=== PATIENT | male | born 1960 | race Two or more races ===

== ENCOUNTER 2021-12-02 23:19 | Inpatient (IN) | payer MEDICARE ==
[~2021-12-02] VITALS: Ht 170.2 cm; Wt 89.5 kg
[2021-12-03] VITALS: BP 104/73
[2021-12-03] MEDS ORDERED: GABA-532 PO (00:10)
[2021-12-03] MEDS ORDERED: RIVA20TA PO (00:10)
[2021-12-03] MEDS ORDERED: ACET-73 PO (00:10)
[2021-12-03] MEDS ORDERED: AMLO10TA59 PO (00:10)
[2021-12-03] MEDS ORDERED: DIGO125T5 PO (00:10)
[2021-12-03] MEDS ORDERED: METO-356 PO (00:10)
[2021-12-03] MEDS ORDERED: LISI2.5T14 PO (00:10)
[2021-12-03] MEDS ORDERED: ATOR40TA PO (00:10)
[2021-12-03] MEDS ORDERED: BUME2TAB7 PO (00:10)
[2021-12-03] MEDS ORDERED: CETI-90 PO (00:10)
[2021-12-03] MEDS ORDERED: ASPI-612 PO (00:10)
[2021-12-03] MEDS ORDERED: LOSA25TA27 PO (00:10)
[2021-12-03] MEDS ORDERED: METH5TAB6 PO (00:10)
[2021-12-03] MEDS ORDERED: INSU100V7 SQ (00:10)
[2021-12-03] MEDS ORDERED: DEXTROSE 50% 50 ML DISP.SYRIN IV PRN (01:15)
[2021-12-03] MEDS ORDERED: REMEDY ESSENTIAL ZINC PASTE 113 GM TP PRN (01:15)
[2021-12-03] MEDS ORDERED: INSULIN REGULAR, HUMAN 300 UNITS/3 ML VIAL SQ PRN (01:15)
[2021-12-03] MEDS: AMIODARONE HCL 200 MG TABLET PO SCH ×3 (01:54→20:57)
[2021-12-03] MEDS: BUMETANIDE 1 MG/4 ML VIAL IV SCH ×3 (01:55→08:34)
--- NOTE | 2021-12-03 03:53 | NUR ---
ADMITTED TO ROOM 303; PT IS a direct admit from [facility]; placed on tele; episode of NSVT, referred to DR Jackson; admit orders and new orders given; Bumex given and amio PO; admission instructions and procedures done with Thais OSORIO interpreting; safety maintained; continue to monitor
[2021-12-03 04:05] VITALS: BP 104/66
[2021-12-03 06:56] LABS: MEAN CORPUSCULAR HEMOGLOBIN 30.2 uug (23.8-33.4); MEAN CORPUSCULAR VOLUME 90.1 fL (73.0-96.2); PLATELET COUNT (AUTO) 183 K/uL (152-348)
[2021-12-03 07:25] LABS: THYROID STIMULATING HORMONE 1.233 mIU/mL (0.358-3.740)
[2021-12-03 07:28] LABS: ALANINE AMINOTRANSFERASE 26 U/L (16-63); ALKALINE PHOSPHATASE 184 U/L (50-136); ASPARTATE AMINOTRANSFERASE 34 U/L (15-37); BILIRUBIN,TOTAL 0.8 mg/dL (0.2-1.0); CARBON DIOXIDE 37 mmol/L (21-32); CHLORIDE 103 mmol/L (98-107); CREATININE 0.9 mg/dL (0.6-1.3); GLUCOSE 94 mg/dL (74-106); MAGNESIUM 1.5 mg/dL (1.8-2.4); PHOSPHOROUS 3.6 mg/dL (2.5-4.9); POTASSIUM 3.6 mmol/L (3.5-5.1); TOTAL PROTEIN, SERUM 5.3 g/dL (6.4-8.2); UREA NITROGEN, BLOOD 16 mg/dL (7-18)
[2021-12-03] MEDS: BLOOD SUGAR DIAGNOSTIC 1 EACH STRIP VI SCH ×4 (07:44→20:57)
--- NOTE | 2021-12-03 07:44 | NUR ---
BLOOD SUGAR PER POC BY RN IS 98. NO S/S OF HYPO/HYPERGLYCEMIA.
[2021-12-03] MEDS ORDERED: POTASSIUM CHLORIDE 20 MEQ POWDER PACKET GT ONE (08:00)
[2021-12-03] MEDS ORDERED: ALBUMIN HUMAN 25% 100 ML IV SCH (08:00)
[2021-12-03] MEDS ORDERED: POTASSIUM CHLORIDE 20 MEQ TAB.PRT.SR PO ONE (08:30)
[2021-12-03] MEDS: GABAPENTIN 100 MG CAPSULE PO SCH ×3 (08:34→16:03)
[2021-12-03] MEDS: METOPROLOL SUCCINATE XL 25 MG TAB.SR.24H PO SCH (08:39)
[2021-12-03] MEDS: LOSARTAN POTASSIUM 25 MG TABLET PO SCH (08:39)
[2021-12-03] MEDS: METHIMAZOLE 5 MG TABLET PO SCH (08:40)
--- NOTE | 2021-12-03 08:40 | NUR ---
Patient is AAO x4, no SOB noted. Denies any chest pain, still noted with BLE edema, non pitting. Patient noted with AFIB with HR in 140's from [id number], HR is now 105-118 Trail[employer] Construction Worker made aware with multiple new medications. Patient is asymptomatic. Call light within reach.
[2021-12-03] MEDS: MAGNESIUM SULFATE/D5W 100 ML IV SCH ×4 (08:53→14:40)
[2021-12-03 11:53] VITALS: BP 102/69
[2021-12-03] MEDS: INSULIN REGULAR, HUMAN 300 UNIT/3 ML VIAL SQ PRN ×2 (12:06→16:48)
[2021-12-03] MEDS ORDERED: DIGOXIN 125 MCG TABLET PO SCH (13:00)
--- NOTE | 2021-12-03 14:00 | NUR ---
Patient remains in controlled AFIB with HR in 90's. Remains asymptomatic, no SOB or chest pain. Urinating well in urinal. Report given to LOCATION AND MEASUREMENT TECHNICIAN taking over patients care.
[2021-12-03 16:03] VITALS: BP 110/69
[2021-12-03] MEDS: FUROSEMIDE 40 MG/4 ML VIAL IV SCH ×2 (17:04→20:56)
[2021-12-03] MEDS: ALBUMIN HUMAN 25% 100 ML IV SCH (17:04)
[2021-12-03] MEDS: ONDANSETRON 4 MG/2 ML VIAL IV PRN ×2 (17:04→23:39)
[2021-12-03] MEDS: RIVAROXABAN 10 MG TABLET PO SCH (17:06)
[2021-12-03 20:00] VITALS: BP 112/75
--- NOTE | 2021-12-03 20:00 | NUR ---
Received patient in bed, alert oriented, speak portuguese but understand Indian, tele monitor A Fib, no complain of sob no chest pain. Patient has episode of coughing, and vomiting with clear color fluids in moderate amount, will give Zofran IV as ordered, patient denies pain at this time, cont to monitor.
[2021-12-03] MEDS: ATORVASTATIN 40 MG TABLET PO SCH (20:57)
[2021-12-03] MEDS: INSULIN GLARGINE,HUM 300 UNITS/3 ML CARTRIDGE SQ SCH (21:09)
[2021-12-04] MEDS: ALBUMIN HUMAN 25% 100 ML IV SCH ×2 (00:11→05:31)
[2021-12-04 00:32] LABS: *AMPHETAMINE, URINE NEGATIVE (NEGATIVE); *CANNABINOID, URINE NEGATIVE (NEGATIVE); *COCCAINE, URINE NEGATIVE (NEGATIVE); *OPIATE, URINE NEGATIVE (NEGATIVE); *PHENCYCLIDINE SCREEN,URINE NEGATIVE (NEGATIVE)
--- NOTE | 2021-12-04 03:22 | NUR ---
Patient has vascular congestion, and had cough, notify Charly Jackson with order of Mucinex 1200mg BID,order noted and carried out.
[2021-12-04] MEDS: GUAIFENESIN LA 600 MG TABLET.SA PO SCH ×3 (03:57→20:44)
[2021-12-04 04:00] VITALS: BP 100/48
[2021-12-04] MEDS: BLOOD SUGAR DIAGNOSTIC 1 EACH STRIP VI SCH ×4 (05:43→21:58)
[2021-12-04 06:36] LABS: HEMATOCRIT 35.7 % (36.7-47.1); PLATELET COUNT (AUTO) 174 K/uL (152-348)
[2021-12-04 06:47] LABS: MAGNESIUM 2.2 mg/dL (1.8-2.4); PHOSPHOROUS 4.7 mg/dL (2.5-4.9); POTASSIUM 3.6 mmol/L (3.5-5.1)
--- NOTE | 2021-12-04 07:07 | NUR ---
PATIENT ALERT ORIENTED, NO SOB NO CHEST PAIN, NO COMPLAIN OF PAIN AT THIS TIME. PATIENT COUGH SUBSIDED, ENCOURAGE PATIENT NOT TO DRINK TOO MUCH WATER, CONT TO MONITOR.
[2021-12-04] MEDS ORDERED: POTASSIUM CHLORIDE 20 MEQ POWDER PACKET GT ONE (07:45)
[2021-12-04] MEDS ORDERED: POTASSIUM CHLORIDE 20 MEQ TAB.PRT.SR PO ONE (07:45)
[2021-12-04 08:30] VITALS: BP 94/43
[2021-12-04] MEDS: FUROSEMIDE 40 MG/4 ML VIAL IV SCH ×2 (08:41→20:43)
[2021-12-04] MEDS: GABAPENTIN 100 MG CAPSULE PO SCH ×3 (08:41→17:21)
[2021-12-04] MEDS: METHIMAZOLE 5 MG TABLET PO SCH (08:42)
[2021-12-04] MEDS: AMIODARONE HCL 200 MG TABLET PO SCH ×3 (08:42→20:48)
[2021-12-04] MEDS: METOPROLOL SUCCINATE XL 25 MG TAB.SR.24H PO SCH (08:43)
[2021-12-04] MEDS: LOSARTAN POTASSIUM 25 MG TABLET PO SCH (08:43)
[2021-12-04] MEDS: ACETAzolamide SODIUM 500 MG VIAL IV SCH (08:44)
--- NOTE | 2021-12-04 09:15 | NUR ---
Pt is a/o x 4, BP is low 94/43 HR 73, MD and Inspector And Hand Packager notified. Per MD continue to administer diuretics and Digoxin. Held Losartan and metoprolol per MD. Comfort measures provided, call light within reach.
--- NOTE | 2021-12-04 12:03 | NUR ---
WOUND CARE CONSULT: SLIGHT GROIN REDNESS NOTED. DISCUSSED SKIN PROTECTION WITH NURSING STAFF. PT USING URINAL. WILL SEE IN AGREEMENT WITH PLAN OF CARE.
[2021-12-04 12:50] VITALS: BP 93/47
[2021-12-04] MEDS: DIGOXIN 250 MCG TABLET PO SCH (12:53)
[2021-12-04] MEDS ORDERED: DIGOXIN 125 MCG TABLET PO SCH (13:00)
[2021-12-04] MEDS: ONDANSETRON 4 MG/2 ML VIAL IV PRN (16:12)
[2021-12-04] MEDS: RIVAROXABAN 10 MG TABLET PO SCH (17:22)
--- NOTE | 2021-12-04 19:20 | NUR ---
Patient received in bed awake, in no acute distress. Denies chest pain. Skin is dry and warm to touch. Bed in low and locked position. Call light within easy reach.
[2021-12-04 20:00] VITALS: BP 100/44
[2021-12-04] MEDS: ATORVASTATIN 40 MG TABLET PO SCH (20:48)
[2021-12-04] MEDS: INSULIN GLARGINE,HUM 300 UNITS/3 ML CARTRIDGE SQ SCH (21:49)
[2021-12-05] VITALS: BP 108/51
[2021-12-05 04:00] VITALS: BP 101/52
--- NOTE | 2021-12-05 06:50 | NUR ---
Patient slept well, easy to arouse. No noted acute distress, denies chest pain. Still noted with BLE edema.
[2021-12-05] MEDS: BLOOD SUGAR DIAGNOSTIC 1 EACH STRIP VI SCH ×4 (07:44→20:50)
[2021-12-05] MEDS: ACETAzolamide SODIUM 500 MG VIAL IV SCH (08:31)
[2021-12-05] MEDS: GABAPENTIN 100 MG CAPSULE PO SCH ×3 (08:31→17:05)
[2021-12-05] MEDS: FUROSEMIDE 40 MG/4 ML VIAL IV SCH ×2 (08:31→20:37)
[2021-12-05] MEDS: GUAIFENESIN LA 600 MG TABLET.SA PO SCH ×2 (08:31→20:37)
[2021-12-05] MEDS: METOPROLOL SUCCINATE XL 25 MG TAB.SR.24H PO SCH ×2 (08:38→08:42)
[2021-12-05] MEDS: LOSARTAN POTASSIUM 25 MG TABLET PO SCH (08:40)
[2021-12-05] MEDS: AMIODARONE HCL 200 MG TABLET PO SCH ×2 (08:41→20:37)
[2021-12-05] MEDS: METHIMAZOLE 5 MG TABLET PO SCH (09:22)
[2021-12-05] MEDS: ACETAMINOPHEN 325 MG TABLET PO PRN (09:29)
[2021-12-05 11:40] LABS: CREATININE 1.4 mg/dL (0.6-1.3)
[2021-12-05 11:50] LABS: BILIRUBIN,TOTAL 0.7 mg/dL (0.2-1.0); TOTAL PROTEIN, SERUM 5.5 g/dL (6.4-8.2)
[2021-12-05] MEDS: INSULIN REGULAR, HUMAN 300 UNIT/3 ML VIAL SQ PRN ×2 (13:07→16:45)
[2021-12-05] MEDS: DIGOXIN 250 MCG TABLET PO SCH (13:18)
[2021-12-05 15:32] VITALS: BP 113/62
[2021-12-05] MEDS: RIVAROXABAN 10 MG TABLET PO SCH (17:05)
--- NOTE | 2021-12-05 19:40 | NUR ---
Received patient in bed, alert oriented, no sob no chest pain, tele monitor A fib, Patient has no episode of vomiting at this time, denies pain, blood sugar stable, cont to monitor.
[2021-12-05 20:27] VITALS: BP 127/60
[2021-12-05] MEDS: ATORVASTATIN 40 MG TABLET PO SCH (20:37)
[2021-12-05] MEDS: INSULIN GLARGINE,HUM 300 UNITS/3 ML CARTRIDGE SQ SCH (20:50)
[2021-12-06 00:07] VITALS: BP 111/61
[2021-12-06 04:36] VITALS: BP 99/58
--- NOTE | 2021-12-06 04:39 | NUR ---
Patient asleep, but arousable, no sob no chest pain, denies pain at this time, no nausea no vomiting noted, still on oxygen 3 LPM, sat 98%, cont to monitor.
[2021-12-06] MEDS: BLOOD SUGAR DIAGNOSTIC 1 EACH STRIP VI SCH ×3 (07:39→16:37)
[2021-12-06] MEDS: GUAIFENESIN LA 600 MG TABLET.SA PO SCH ×2 (08:35→20:45)
[2021-12-06] MEDS: AMIODARONE HCL 200 MG TABLET PO SCH ×2 (08:35→20:46)
[2021-12-06] MEDS: METHIMAZOLE 5 MG TABLET PO SCH (08:35)
[2021-12-06] MEDS: GABAPENTIN 100 MG CAPSULE PO SCH ×3 (08:35→17:15)
[2021-12-06] MEDS: METOPROLOL SUCCINATE XL 25 MG TAB.SR.24H PO SCH (08:36)
[2021-12-06] MEDS: LOSARTAN POTASSIUM 25 MG TABLET PO SCH (08:37)
[2021-12-06 08:50] VITALS: BP 104/56
[2021-12-06] MEDS: FUROSEMIDE 40 MG/4 ML VIAL IV SCH (09:35)
[2021-12-06] MEDS: ACETAzolamide SODIUM 500 MG VIAL IV SCH (09:35)
[2021-12-06 11:26] LABS: HEMATOCRIT 42.2 % (36.7-47.1); MEAN CORPUSCULAR HEMOGLOBIN 30.2 uug (23.8-33.4); MEAN CORPUSCULAR VOLUME 93.2 fL (73.0-96.2); PLATELET COUNT (AUTO) 242 K/uL (152-348)
[2021-12-06 11:35] LABS: CREATININE 1.3 mg/dL (0.6-1.3); MAGNESIUM 2.2 mg/dL (1.8-2.4); POTASSIUM 3.5 mmol/L (3.5-5.1)
[2021-12-06 12:02] VITALS: BP 114/58
[2021-12-06] MEDS: INSULIN REGULAR, HUMAN 300 UNIT/3 ML VIAL SQ PRN ×2 (12:21→16:44)
[2021-12-06] MEDS: DIGOXIN 250 MCG TABLET PO SCH (12:32)
[2021-12-06] MEDS: RIVAROXABAN 10 MG TABLET PO SCH (17:33)
[2021-12-06 20:00] VITALS: BP 106/53
[2021-12-06] MEDS: ATORVASTATIN 40 MG TABLET PO SCH (20:45)
--- NOTE | 2021-12-06 20:45 | NUR ---
Pt AAO x 4. No SOB, respiratory distress, or chest pain noted. IV on L wrist 20 g HL intact and patent. Safety precautions maintained. Will continue to monitor.
[2021-12-07 04:00] VITALS: BP 142/65
[2021-12-07] MEDS: ACETAMINOPHEN 325 MG TABLET PO PRN (05:39)
[2021-12-07 06:59] LABS: HEMATOCRIT 42.4 % (36.7-47.1); MEAN CORPUSCULAR HEMOGLOBIN 30.4 uug (23.8-33.4); MEAN CORPUSCULAR VOLUME 91.8 fL (73.0-96.2); PLATELET COUNT (AUTO) 174 K/uL (152-348)
[2021-12-07 07:21] LABS: BILIRUBIN,TOTAL 0.7 mg/dL (0.2-1.0); MAGNESIUM 2.2 mg/dL (1.8-2.4); PHOSPHOROUS 3.5 mg/dL (2.5-4.9); POTASSIUM 4.4 mmol/L (3.5-5.1); TOTAL PROTEIN, SERUM 5.3 g/dL (6.4-8.2)
--- NOTE | 2021-12-07 07:40 | NUR ---
Sleeping, appears comfortable. O2 at 2L/NC
[2021-12-07] MEDS ORDERED: BUMETANIDE 1 MG TABLET PO SCH (09:00)
[2021-12-07] MEDS: ACETAzolamide SODIUM 500 MG VIAL IV SCH (09:24)
[2021-12-07] MEDS: LOSARTAN POTASSIUM 25 MG TABLET PO SCH (09:25)
[2021-12-07] MEDS: AMIODARONE HCL 200 MG TABLET PO SCH ×2 (09:25→20:48)
[2021-12-07] MEDS: GUAIFENESIN LA 600 MG TABLET.SA PO SCH ×2 (09:25→20:39)
[2021-12-07] MEDS: METOPROLOL SUCCINATE XL 25 MG TAB.SR.24H PO SCH (09:26)
[2021-12-07] MEDS: METHIMAZOLE 5 MG TABLET PO SCH (09:26)
[2021-12-07] MEDS: GABAPENTIN 100 MG CAPSULE PO SCH ×3 (09:26→17:49)
[2021-12-07] MEDS: GLIMEPIRIDE 2 MG TABLET PO SCH (09:29)
--- NOTE | 2021-12-07 09:30 | NUR ---
Assisted out of bed by PT, max assist, able to do side steps at bedside
[2021-12-07 11:21] VITALS: BP 117/57
[2021-12-07] MEDS: DIGOXIN 250 MCG TABLET PO SCH (12:35)
[2021-12-07 16:11] VITALS: BP 102/54
[2021-12-07] MEDS: RIVAROXABAN 10 MG TABLET PO SCH (17:49)
--- NOTE | 2021-12-07 18:30 | NUR ---
With fair appetite. Incontinence care done
[2021-12-07 20:00] VITALS: BP 93/50
[2021-12-07] MEDS: ATORVASTATIN 40 MG TABLET PO SCH (20:44)
[2021-12-08 04:00] VITALS: BP 96/46
--- NOTE | 2021-12-08 06:53 | NUR ---
Pt slept comfortably throughout the night. Denies SOB or pain. O2 at 2LPM/NC. Safety measures maintained. Pending urine sample. Will endorse to incoming shift.
[2021-12-08 07:07] LABS: CREATININE 1.1 mg/dL (0.6-1.3); POTASSIUM 3.9 mmol/L (3.5-5.1)
[2021-12-08] MEDS: GUAIFENESIN LA 600 MG TABLET.SA PO SCH ×2 (08:56→21:16)
[2021-12-08] MEDS: GLIMEPIRIDE 2 MG TABLET PO SCH (08:56)
[2021-12-08] MEDS: GABAPENTIN 100 MG CAPSULE PO SCH ×3 (08:56→17:04)
[2021-12-08] MEDS: METHIMAZOLE 5 MG TABLET PO SCH (08:58)
[2021-12-08] MEDS: AMIODARONE HCL 200 MG TABLET PO SCH ×2 (08:59→21:16)
[2021-12-08] MEDS: ACETAzolamide 250 MG TABLET PO SCH ×2 (08:59→21:16)
[2021-12-08] MEDS: METOPROLOL SUCCINATE XL 50 MG TAB.SR.24H PO SCH (09:00)
[2021-12-08] MEDS: LOSARTAN POTASSIUM 25 MG TABLET PO SCH (09:00)
[2021-12-08] MEDS: BUMETANIDE 1 MG TABLET PO SCH (09:01)
[2021-12-08 10:48] LABS: ABG BASE EXCESS 8.5 mmol/L; ABG PCO2 68.8 mmHg (35.0-45.0); ABG PH 7.348 (7.350-7.450); ABG PO2 76.5 mmHg (75.0-100.0); ABG SITE RIGHT BRACHIAL; ABG TOTAL HEMOGLOBIN 14.4 G/dL (13.5-18.0); COHb 1.1 % (0.5-1.5); MetHb 0.1 % (0.0-1.5); O2Hb 94.2 % (94.0-97.0); VENT MODE Nasal Cannula
--- NOTE | 2021-12-08 12:46 | NUR ---
PATIENT SEEN AND EXAMINED BY [facility] WITH NEW ORDERS AND NOTED Addendum: 12/08/21 at 1826 by NINA GUILLEN RN ERROR WRONG PATIENT
[2021-12-08] MEDS: DIGOXIN 125 MCG TABLET PO SCH (12:54)
[2021-12-08 15:42] VITALS: BP 118/64
--- NOTE | 2021-12-08 17:00 | NUR ---
RAPID COVID TEST DONE ORDERED WITH NEGATIVE RESULT
[2021-12-08] MEDS: RIVAROXABAN 10 MG TABLET PO SCH (17:09)
--- NOTE | 2021-12-08 18:26 | NUR ---
SEEN BY VISHNU RODRIGUEZ WITH NEW ORDERS AND NOTED.
[2021-12-08 20:38] VITALS: BP 106/53
[2021-12-09 04:40] VITALS: BP 103/58
--- NOTE | 2021-12-09 05:47 | NUR ---
No changes in condition throughout the night. Denies SOB or pain. On 1L/min NC, tolerating well. No distress noted.
[2021-12-09 07:01] LABS: HEMATOCRIT 40.6 % (36.7-47.1); MEAN CORPUSCULAR HEMOGLOBIN 30.7 uug (23.8-33.4); PLATELET COUNT (AUTO) 222 K/uL (152-348)
[2021-12-09 07:24] LABS: CREATININE 1.1 mg/dL (0.6-1.3); MAGNESIUM 2.2 mg/dL (1.8-2.4)
[2021-12-09] MEDS: GUAIFENESIN LA 600 MG TABLET.SA PO SCH ×2 (08:51→20:46)
[2021-12-09] MEDS: GLIMEPIRIDE 2 MG TABLET PO SCH (08:52)
[2021-12-09] MEDS: BUMETANIDE 1 MG TABLET PO SCH (08:52)
[2021-12-09] MEDS: GABAPENTIN 100 MG CAPSULE PO SCH ×3 (08:52→17:17)
[2021-12-09] MEDS: ACETAzolamide 250 MG TABLET PO SCH ×2 (08:53→20:46)
[2021-12-09] MEDS: METHIMAZOLE 5 MG TABLET PO SCH (08:53)
[2021-12-09 09:00] VITALS: BP 112/60
[2021-12-09] MEDS: LOSARTAN POTASSIUM 25 MG TABLET PO SCH (09:00)
[2021-12-09] MEDS: METOPROLOL SUCCINATE XL 50 MG TAB.SR.24H PO SCH (09:01)
[2021-12-09] MEDS: AMIODARONE HCL 200 MG TABLET PO SCH ×2 (09:02→20:46)
--- NOTE | 2021-12-09 09:07 | NUR ---
Pt is a/o x 4, SpO2 97% on 1L nasal cannula. Titrated to room air, SpO2 94%. no complaint of pain or SOB at this time.
[2021-12-09 11:17] VITALS: BP 113/60
[2021-12-09] MEDS: DIGOXIN 125 MCG TABLET PO SCH (12:51)
[2021-12-09 13:39] LABS: *BILIRUBIN,URIN NEGATIVE (NEGATIVE); *BLOOD, URINE NEGATIVE (NEGATIVE); *CLARITY,URINE CLEAR (CLEAR); *COLOR,URINE YELLOW (YELLOW); *KETONES,URINE NEGATIVE (NEGATIVE); LEUKOCYTE ESTERASE ,URINE NEGATIVE (NEGATIVE); NITRITE, URINE NEGATIVE (NEGATIVE); PH,URINE 8.5 (5.0-8.0); UGLUCOSE NEGATIVE (NEGATIVE)
[2021-12-09 14:14] LABS: *CREATININE,URINE 28.1 mg/dL (30-125)
[2021-12-09 15:50] VITALS: BP 119/65
[2021-12-09] MEDS: RIVAROXABAN 10 MG TABLET PO SCH (17:24)
[2021-12-09 20:00] VITALS: BP 124/60
--- NOTE | 2021-12-10 00:08 | NUR ---
PLACED PATIENT ON NOC BIPAP PER MD ORDERS. A FEW MINUTES LATER, PATIENT IS COMPLAINING. PATIENT DOES NOT WANT BIPAP ON. TOOK PATIENT OFF THE BIPAP. PATIENT IS ON ROOM AIR. NO SOB NOTED AT THIS TIME. BIPAP IS ON STAND BY AT BEDSIDE.
[2021-12-10 04:00] VITALS: BP 120/72
--- NOTE | 2021-12-10 05:15 | NUR ---
Slept throughout the night. Used Bipap periodically, educated on importance of Bipap, but kept taking it off stating that it was uncomfortable. IV site intact. Denies SOB or pain. Able to make needs known. Will endorse to day shift.
[2021-12-10 06:47] LABS: HEMATOCRIT 40.7 % (36.7-47.1); MEAN CORPUSCULAR HEMOGLOBIN 30.2 uug (23.8-33.4); MEAN CORPUSCULAR VOLUME 90.1 fL (73.0-96.2); PLATELET COUNT (AUTO) 227 K/uL (152-348)
[2021-12-10 06:57] LABS: CREATININE 1.1 mg/dL (0.6-1.3); MAGNESIUM 2.4 mg/dL (1.8-2.4); POTASSIUM 4.1 mmol/L (3.5-5.1)
[2021-12-10 07:49] VITALS: BP 134/60
[2021-12-10] MEDS: GUAIFENESIN LA 600 MG TABLET.SA PO SCH ×2 (08:26→21:17)
[2021-12-10] MEDS: BUMETANIDE 1 MG TABLET PO SCH (08:27)
[2021-12-10] MEDS: GABAPENTIN 100 MG CAPSULE PO SCH ×3 (08:28→17:02)
[2021-12-10] MEDS: METOPROLOL SUCCINATE XL 50 MG TAB.SR.24H PO SCH (08:28)
[2021-12-10] MEDS: AMIODARONE HCL 200 MG TABLET PO SCH ×2 (08:28→21:18)
[2021-12-10] MEDS: ACETAzolamide 250 MG TABLET PO SCH ×2 (08:29→21:17)
[2021-12-10] MEDS: LOSARTAN POTASSIUM 25 MG TABLET PO SCH (08:29)
[2021-12-10] MEDS: METHIMAZOLE 5 MG TABLET PO SCH (08:30)
--- NOTE | 2021-12-10 08:37 | NUR ---
Critical lab of CO2 41 reported by braeden. notified.
--- NOTE | 2021-12-10 11:45 | NUR ---
Pt was complaining of chest pressure on both sides of chest, elevated head of the bed and pt stated he does not have pain or pressure anymore. MD was notified.
[2021-12-10] MEDS: DIGOXIN 125 MCG TABLET PO SCH (13:26)
[2021-12-10 14:51] VITALS: BP 110/65
[2021-12-10] MEDS: RIVAROXABAN 10 MG TABLET PO SCH (17:02)
--- NOTE | 2021-12-10 19:00 | NUR ---
Plan is to discharge pt to [facility], pending life vest arrival. (wearable defibrillator). Ambulance scheduled for will call. Nurse for life vest arrived at 1900 to provide education to pt on how to operate vest. Pt verbalized understanding and demonstrated turning on and off vest. Facility will be provided number to call to get education on vest as well. Will endorse to retail shift supervisor. Discharging nurse to call [facility] admission team at to notify of discharge order in order for them to reserve a bed. MD notified of vest arrival, pending discharge order.
--- NOTE | 2021-12-10 19:40 | NUR ---
Pt in no acute distress. Pt educated on his life vest. RN from [facility] gave instructions to the pt and staff nurse. Pt understand. IV intact. Will continue to monitor.
--- NOTE | 2021-12-10 20:00 | NUR ---
spoke to nurse Guerra at [facility]. They have a bed available 117A but because pt has a bipap order, they are unable to accept pt without one sent for him in advance. Faxed over BiPap Setting to facility at [phone]. Facility will order BiPap and call us to let us know when it is arriving. Possible discharge tomorrow. Endorsed all information to senior maintenance mechanic nurse Alejandra.
[2021-12-10 20:03] VITALS: BP 110/61
--- NOTE | 2021-12-10 20:30 | NUR ---
Family at bedside and gave update to the pt condition and discharge will be ryne.
--- NOTE | 2021-12-10 20:32 | NUR ---
Informed Reynold Balderas MULTIMEDIA ENGINEER that [facility] can't accept the pt as per nurse in [facility].
[2021-12-10] MEDS: ACETAMINOPHEN 325 MG TABLET PO PRN (21:17)
--- NOTE | 2021-12-10 22:49 | NUR ---
PATIENT FOUND ON ROOM AIR. REFUSED TO USED BIPAP . NO SOB OR RESP DISTRESS NOTED AT THIS TIME.
--- NOTE | 2021-12-10 22:54 | NUR ---
[facility] nurse called and said that they can take the pt but no discharge order yet since I informed the doctor that they will not take the pt tonight. Pt stable. Will continue to monitor.
[2021-12-11 04:03] VITALS: BP 103/52
--- NOTE | 2021-12-11 06:38 | NUR ---
Pt in no acute distress. Iv intact. Called [facility] ambulance and reserve 2pm schedule for her picking crew supervisor going to [facility]. Prescribed medication given and pt tolerated it well. Pt stable. Will endorse to incoming nurse for continuity of care.
[2021-12-11 07:04] LABS: MEAN CORPUSCULAR HEMOGLOBIN 30.2 uug (23.8-33.4); MEAN CORPUSCULAR VOLUME 90.5 fL (73.0-96.2); PLATELET COUNT (AUTO) 241 K/uL (152-348)
[2021-12-11 07:07] LABS: CREATININE 1.1 mg/dL (0.6-1.3); MAGNESIUM 2.3 mg/dL (1.8-2.4); POTASSIUM 3.8 mmol/L (3.5-5.1)
[2021-12-11] MEDS: GUAIFENESIN LA 600 MG TABLET.SA PO SCH (08:42)
[2021-12-11] MEDS: BUMETANIDE 1 MG TABLET PO SCH (08:42)
[2021-12-11] MEDS: GABAPENTIN 100 MG CAPSULE PO SCH (08:43)
[2021-12-11] MEDS: METOPROLOL SUCCINATE XL 50 MG TAB.SR.24H PO SCH (08:43)
[2021-12-11] MEDS: AMIODARONE HCL 200 MG TABLET PO SCH (08:44)
[2021-12-11] MEDS: LOSARTAN POTASSIUM 25 MG TABLET PO SCH (08:44)
[2021-12-11] MEDS: METHIMAZOLE 5 MG TABLET PO SCH (08:45)
[2021-12-11] MEDS: ACETAzolamide 250 MG TABLET PO SCH (08:45)
[2021-12-11] MEDS ORDERED: METF-441 PO (09:34)
[2021-12-11 10:59] VITALS: BP 111/58
--- NOTE | 2021-12-11 11:02 | NUR ---
Called and gave report to nurse Wilkins at [facility]. Pt is accepted and will be discharging to room 117A with tile picker scheduled for 11 am. Pt is a/o x 4, aware and agreeable for transport. All discharge education provided, all personal belongings gathered for pt and signed for. Pt has life vest and is able to operate. Facility has BiPap machine already delivered and waiting for pt arrival.
--- NOTE | 2021-12-11 11:31 | NUR ---
pt left at 1130 via [facility].
== END 2021-12-11 11:30 | DRG 291 ==
LOC: TELE3 12-03 → MEDSURG3 12-06 12:30
PROVIDERS: ADMIT Internal Medicine; ATTEND Nurse Practitioner Family
DX: I11.0 Hypertensive heart disease with heart failure (principal); I50.23 Acute on chronic systolic (congestive) heart failure; N17.0 Acute kidney failure with tubular necrosis; E87.4 Mixed disorder of acid-base balance; I48.20 Chronic atrial fibrillation, unspecified; D68.69 Other thrombophilia; J90 Pleural effusion, not elsewhere classified; R18.8 Other ascites; E05.90 Thyrotoxicosis, unspecified without thyrotoxic crisis or storm; D63.8 Anemia in other chronic diseases classified elsewhere; E78.5 Hyperlipidemia, unspecified; I25.10 Atherosclerotic heart disease of native coronary artery without angina pectoris; I42.9 Cardiomyopathy, unspecified; Z95.3 Presence of xenogenic heart valve; Z79.01 Long term (current) use of anticoagulants; E11.9 Type 2 diabetes mellitus without complications; Z74.09 Other reduced mobility; E66.9 Obesity, unspecified; Z68.30 Body mass index [BMI] 30.0-30.9, adult; Z91.19 Patient's noncompliance with other medical treatment and regimen; Z79.4 Long term (current) use of insulin; Z20.822 Contact with and (suspected) exposure to COVID-19
CPT/HCPCS: 36415; 36600; 71045; 76705; 76770; 82803; 83735; 84100; 84300; 84443; 84484; 85025; 93307; 94660; 97161; A6209; A6213; G0378; J1120; J1815; J1940; J2405; J3475; J3490; J8499; P9047

== ENCOUNTER 2022-02-18 14:18 | Inpatient (IN) | payer MEDICARE, OTHER ==
[~2022-02-18] VITALS: Ht 165.1 cm; Wt 68.0 kg
[~2022-02-18 14:18] MED LIST: ACET-73 PO; ATOR40TA PO; DIGO125T5 PO; GABA-532 PO; LOSA25TA27 PO; METF-441 PO; METH5TAB6 PO; RIVA20TA PO
[2022-02-18] MEDS ORDERED: SPIR25TA6 PO (14:46)
[2022-02-18] MEDS ORDERED: ONDA4TAB5 PO (14:46)
[2022-02-18] MEDS ORDERED: AMIN30LI2 PO (14:46)
[2022-02-18] MEDS ORDERED: METO25TA6 PO (14:46)
[2022-02-18] MEDS ORDERED: MAGN400C PO (14:46)
[2022-02-18] MEDS ORDERED: MULT-213 PO (14:46)
[2022-02-18] MEDS ORDERED: ASCO500C18 PO (14:46)
[2022-02-18] MEDS ORDERED: HYDR-894 PO (14:46)
[2022-02-18] MEDS ORDERED: IPRA3AMP22 IH (14:46)
[2022-02-18] MEDS ORDERED: MAG30ORA PO (14:46)
[2022-02-18] MEDS ORDERED: ZINC50TA69 PO (14:46)
[2022-02-18 15:18] LABS: HEMATOCRIT 28.6 % (36.7-47.1); MEAN CORPUSCULAR HEMOGLOBIN 30.3 uug (23.8-33.4); MEAN CORPUSCULAR VOLUME 88.4 fL (73.0-96.2); PLATELET COUNT (AUTO) 228 K/uL (152-348)
[2022-02-18 15:19] LABS: CARBON DIOXIDE 37 mmol/L (21-32); CHLORIDE 91 mmol/L (98-107); CREATININE 0.9 mg/dL (0.6-1.3); GLUCOSE 93 mg/dL (74-106); POTASSIUM 4.4 mmol/L (3.5-5.1); UREA NITROGEN, BLOOD 22 mg/dL (7-18)
[2022-02-18 15:28] LABS: ALANINE AMINOTRANSFERASE 21 U/L (16-63); ALKALINE PHOSPHATASE 259 U/L (50-136); ASPARTATE AMINOTRANSFERASE 32 U/L (15-37); BILIRUBIN,DIRECT 0.4 mg/dL (0.0-0.2); BILIRUBIN,TOTAL 0.6 mg/dL (0.2-1.0); TOTAL PROTEIN, SERUM 8.6 g/dL (6.4-8.2)
[2022-02-18 16:03] LABS: *BILIRUBIN,URIN NEGATIVE (NEGATIVE); *BLOOD, URINE 2+ (NEGATIVE); *CLARITY,URINE CLEAR (CLEAR); *COLOR,URINE YELLOW (YELLOW); *KETONES,URINE NEGATIVE (NEGATIVE); LEUKOCYTE ESTERASE ,URINE NEGATIVE (NEGATIVE); NITRITE, URINE NEGATIVE (NEGATIVE); UGLUCOSE NEGATIVE (NEGATIVE)
[2022-02-18 16:17] LABS: BACTERIA,URINE FEW /HPF (NONE SEEN); SQUAMOUS EPITHELIAL CELL,UR FEW /HPF (NONE SEEN); WBC,URINE 0-3 /HPF (0-3)
[2022-02-18] MEDS ORDERED: AZITHROMYCIN 500MG/ D5W 250ML IVPB **ER PYXIS ONLY IV ONE (16:23)
[2022-02-18] MEDS ORDERED: CEFTRIAXONE /D5W 50ML IVPB **ER PYXIS IV ONE (16:23)
[2022-02-18] MEDS ORDERED: AZITHROMYCIN IV 500 MG in IV DEXTROSE 5% 250 ML IV ONE (16:30)
[2022-02-18] MEDS ORDERED: CEFTRIAXONE 1 G in IV DEXTROSE 5% 50 ML IV ONE (16:30)
--- NOTE | 2022-02-18 16:39 | NUR ---
SENT MRSA SWAB NARES TO LAB.
[2022-02-18] MEDS ORDERED: IV NORMAL SALINE 1000 ML BAG IV ONE (17:00)
[2022-02-18] MEDS ORDERED: ACETAMINOPHEN 325 MG TABLET ONE (17:26)
[2022-02-18] MEDS ORDERED: ACETAMINOPHEN 325 MG TABLET PO ONE (17:30)
--- NOTE | 2022-02-18 17:35 | NUR ---
Dr Nolasco made aware oF Pt's elevated temp, Orders received and carried out.
[2022-02-18] MEDS ORDERED: ACETAMINOPHEN 325 MG TABLET PO PRN ×2 (17:45→20:45)
[2022-02-18] MEDS ORDERED: hydrALAZINE HCL 25 MG TABLET PO PRN (20:30)
[2022-02-18] MEDS ORDERED: ONDANSETRON 4 MG/2 ML VIAL IV PRN (20:30)
[2022-02-18] MEDS ORDERED: ACET-73 PO (20:38)
[2022-02-18] MEDS ORDERED: GABA300C PO (20:38)
[2022-02-18] MEDS ORDERED: ARGI1POW13 PO (20:38)
[2022-02-18] MEDS ORDERED: ATOR40TA PO (20:38)
[2022-02-18] MEDS ORDERED: DIGO125T PO (20:38)
[2022-02-18] MEDS ORDERED: BUME2TAB7 PO (20:38)
[2022-02-18] MEDS ORDERED: ACET-2154 PO (20:38)
--- NOTE | 2022-02-18 20:49 | NUR ---
Pt. admitted to telemetry unit, Room 316, under care of Dr. Nolasco. Belongs List completed by day shift RN.
[2022-02-18] MEDS ORDERED: TEMAZEPAM 15 MG CAPSULE PO PRN (21:00)
[2022-02-18 21:07] VITALS: BP 110/55
[2022-02-18] MEDS: DOCUSATE SODIUM 100 MG CAPSULE PO SCH (21:43)
[2022-02-18] MEDS: ATORVASTATIN 40 MG TABLET PO SCH (21:43)
[2022-02-18] MEDS: MAGNESIUM OXIDE 400 MG TABLET PO SCH (21:43)
[2022-02-18] MEDS: HYDROCODONE/APAP 5-325MG TABLET PO PRN (21:45)
[2022-02-18] MEDS ORDERED: PIPERACILLIN SODIUM/TAZOBACTAM 3.375 G in IV DEXTROSE 5% 50 ML IV SCH (22:00)
[2022-02-18] MEDS: PIPERACILLIN SODIUM/TAZOBACTAM 3.375 G in IV DEXTROSE 5% 100 ML IV SCH (22:09)
[2022-02-18] MEDS: GUAIFENESIN/DEXTROMETHORPHAN 5 ML UDC PO PRN (22:40)
[2022-02-19 00:01] VITALS: BP 123/57
[2022-02-19 04:21] VITALS: BP 147/77
[2022-02-19] MEDS: PIPERACILLIN SODIUM/TAZOBACTAM 3.375 G in IV DEXTROSE 5% 100 ML IV SCH ×3 (05:04→23:04)
[2022-02-19] MEDS: GUAIFENESIN/DEXTROMETHORPHAN 5 ML UDC PO PRN (05:04)
[2022-02-19] MEDS: PANTOPRAZOLE SODIUM 40 MG TABLET.DR PO SCH (06:16)
[2022-02-19 06:52] LABS: HEMATOCRIT 26.1 % (36.7-47.1); MEAN CORPUSCULAR HEMOGLOBIN 30.6 uug (23.8-33.4); MEAN CORPUSCULAR VOLUME 87.5 fL (73.0-96.2); PLATELET COUNT (AUTO) 218 K/uL (152-348)
[2022-02-19 07:11] LABS: BILIRUBIN,TOTAL 0.7 mg/dL (0.2-1.0); CREATININE 0.8 mg/dL (0.6-1.3); DIGOXIN 1.2 ng/mL (0.9-2.0); MAGNESIUM 1.8 mg/dL (1.8-2.4); PHOSPHOROUS 3.2 mg/dL (2.5-4.9); POTASSIUM 4.9 mmol/L (3.5-5.1); TOTAL PROTEIN, SERUM 7.4 g/dL (6.4-8.2)
[2022-02-19 07:12] LABS: THYROID STIMULATING HORMONE 5.181 mIU/mL (0.358-3.740)
[2022-02-19] MEDS: SPIRONOLACTONE 25 MG TABLET PO SCH (08:42)
[2022-02-19] MEDS: MULTIVIT, IRON, MIN NO. 8, FA TABLET PO SCH (08:42)
[2022-02-19] MEDS: GABAPENTIN 300 MG CAPSULE PO SCH ×3 (08:42→16:24)
[2022-02-19] MEDS: ARGININE/GLUTAMINE/CALCIUM BMB 1 EACH POWD.PACK PO SCH ×2 (08:42→16:23)
[2022-02-19] MEDS: ASCORBIC ACID 500 MG TABLET PO SCH ×2 (08:42→16:24)
[2022-02-19] MEDS: PROTEIN SUPPLEMENT (PROSTAT) 30 ML LIQUID PO SCH ×2 (08:42→16:24)
[2022-02-19] MEDS: ZINC SULFATE 220 MG CAPSULE PO SCH (08:42)
[2022-02-19] MEDS: METHIMAZOLE 5 MG TABLET PO SCH (08:43)
[2022-02-19] MEDS: DIGOXIN 125 MCG TABLET PO SCH (08:47)
[2022-02-19] MEDS ORDERED: Medication Not On Formulary EA (Multivitamins W-Minerals (Multivitamin With Minerals) 1 PO SCH (09:00)
[2022-02-19] MEDS ORDERED: Medication Not On Formulary EA (Ascorbic Acid (Vitamin C) 500 MG) PO SCH (09:00)
[2022-02-19] MEDS ORDERED: Medication Not On Formulary EA (Arginine/Ascorbate Sod/Vite AC (Arginaid Powder) 1 EACH) PO SCH (09:00)
[2022-02-19] MEDS ORDERED: ZINC 220 MG PO SCH (09:00)
[2022-02-19] MEDS ORDERED: Medication Not On Formulary EA (Amino Acids/Protein Hydrolys (Pro-Stat Liquid) 30 ML) PO SCH (09:00)
[2022-02-19 11:56] VITALS: BP 109/60
[2022-02-19] MEDS ORDERED: LOPERAMIDE HCL 2 MG CAPSULE PO PRN (13:45)
[2022-02-19 16:14] VITALS: BP 123/75
--- NOTE | 2022-02-19 18:28 | NUR ---
Patient tolerated care well throughout shift with minimal complaints of pain. Diarrhea resolved with Imodium given during shift. Patient's IV site with minimal leakage, but refusing to have new IV site placed. Bed left in lowest position with call light within reach. Comfort measures provided. Will endorse information to PM nurse.
[2022-02-19 20:00] VITALS: BP 114/64
[2022-02-19] MEDS: ATORVASTATIN 40 MG TABLET PO SCH (20:28)
[2022-02-19] MEDS: MUPIROCIN 2% OINT 22 GM TUBE NS SCH (20:28)
[2022-02-19] MEDS: DOCUSATE SODIUM 100 MG CAPSULE PO SCH (20:28)
[2022-02-19] MEDS: MAGNESIUM OXIDE 400 MG TABLET PO SCH (20:29)
[2022-02-19] MEDS: HYDROCODONE/APAP 5-325MG TABLET PO PRN (21:51)
[2022-02-20] VITALS: BP 97/50
[2022-02-20 04:00] VITALS: BP 123/64
[2022-02-20] MEDS: HYDROCODONE/APAP 5-325MG TABLET PO PRN ×2 (05:30→21:54)
[2022-02-20] MEDS: PIPERACILLIN SODIUM/TAZOBACTAM 3.375 G in IV DEXTROSE 5% 100 ML IV SCH ×3 (05:34→21:44)
[2022-02-20] MEDS: PANTOPRAZOLE SODIUM 40 MG TABLET.DR PO SCH (06:05)
[2022-02-20 06:58] LABS: HEMATOCRIT 31.5 % (36.7-47.1); MEAN CORPUSCULAR HEMOGLOBIN 29.7 uug (23.8-33.4); MEAN CORPUSCULAR VOLUME 89.1 fL (73.0-96.2); PLATELET COUNT (AUTO) 243 K/uL (152-348)
[2022-02-20 07:07] LABS: CREATININE 0.8 mg/dL (0.6-1.3); MAGNESIUM 2.1 mg/dL (1.8-2.4); PHOSPHOROUS 4.2 mg/dL (2.5-4.9); POTASSIUM 4.5 mmol/L (3.5-5.1)
[2022-02-20] MEDS: MUPIROCIN 2% OINT 22 GM TUBE NS SCH ×2 (09:00→20:34)
[2022-02-20] MEDS: MULTIVIT, IRON, MIN NO. 8, FA TABLET PO SCH (10:07)
[2022-02-20] MEDS: ZINC SULFATE 220 MG CAPSULE PO SCH (10:07)
[2022-02-20] MEDS: DIGOXIN 125 MCG TABLET PO SCH (10:07)
[2022-02-20] MEDS: ASCORBIC ACID 500 MG TABLET PO SCH ×2 (10:07→18:40)
[2022-02-20] MEDS: SPIRONOLACTONE 25 MG TABLET PO SCH (10:07)
[2022-02-20] MEDS: GABAPENTIN 300 MG CAPSULE PO SCH ×3 (10:07→18:39)
[2022-02-20] MEDS: ARGININE/GLUTAMINE/CALCIUM BMB 1 EACH POWD.PACK PO SCH ×2 (10:08→17:00)
[2022-02-20] MEDS: PROTEIN SUPPLEMENT (PROSTAT) 30 ML LIQUID PO SCH ×2 (10:08→17:00)
[2022-02-20] MEDS: METHIMAZOLE 5 MG TABLET PO SCH (10:09)
[2022-02-20 11:53] VITALS: BP 122/62
[2022-02-20 16:00] VITALS: BP 111/53
[2022-02-20 20:00] VITALS: BP 103/55
[2022-02-20] MEDS: DOCUSATE SODIUM 100 MG CAPSULE PO SCH (20:29)
[2022-02-20] MEDS: ATORVASTATIN 40 MG TABLET PO SCH (20:29)
[2022-02-20] MEDS: MAGNESIUM OXIDE 400 MG TABLET PO SCH (20:29)
[2022-02-20] MEDS: MAG HYDROX/AL HYDROX/SIMETH 30 ML LIQUID UDC PO PRN (23:05)
--- NOTE | 2022-02-21 04:00 | NUR ---
Patient is up in w/c awake alert and oriented x 3, had and episode of V tach, denies chest pain BP 117/52, not on any form of distress. Stat EKG done, A. Fib, RSR' or QR pattern in V1 suggests right ventricular conduction delay. Continue to monitor patient.
[2022-02-21] MEDS: HYDROCODONE/APAP 5-325MG TABLET PO PRN ×2 (04:17→17:11)
[2022-02-21] MEDS: PIPERACILLIN SODIUM/TAZOBACTAM 3.375 G in IV DEXTROSE 5% 100 ML IV SCH ×2 (05:48→13:50)
[2022-02-21] MEDS: PANTOPRAZOLE SODIUM 40 MG TABLET.DR PO SCH (06:21)
[2022-02-21 06:28] LABS: HEMATOCRIT 28.9 % (36.7-47.1); MEAN CORPUSCULAR HEMOGLOBIN 29.4 uug (23.8-33.4); MEAN CORPUSCULAR VOLUME 88.7 fL (73.0-96.2); PLATELET COUNT (AUTO) 191 K/uL (152-348)
[2022-02-21 06:55] LABS: CREATININE 0.7 mg/dL (0.6-1.3); MAGNESIUM 2.2 mg/dL (1.8-2.4); PHOSPHOROUS 3.9 mg/dL (2.5-4.9)
--- NOTE | 2022-02-21 07:30 | NUR ---
Received awake and oriented x3. On 2 Lpm nc satting 98%. No resp distress. Iv intact and patent, atb infusing as ordered. Afib controlled on tele. Safety measures in place. Kept comfortable. Needs attended. Sr
[2022-02-21] MEDS: MAG HYDROX/AL HYDROX/SIMETH 30 ML LIQUID UDC PO PRN (08:48)
[2022-02-21] MEDS: ARGININE/GLUTAMINE/CALCIUM BMB 1 EACH POWD.PACK PO SCH ×2 (08:49→17:00)
[2022-02-21] MEDS: PROTEIN SUPPLEMENT (PROSTAT) 30 ML LIQUID PO SCH ×2 (08:49→17:00)
[2022-02-21] MEDS: MUPIROCIN 2% OINT 22 GM TUBE NS SCH (08:50)
[2022-02-21] MEDS: GABAPENTIN 300 MG CAPSULE PO SCH ×3 (08:59→17:10)
[2022-02-21] MEDS: ZINC SULFATE 220 MG CAPSULE PO SCH (08:59)
[2022-02-21] MEDS: MULTIVIT, IRON, MIN NO. 8, FA TABLET PO SCH (08:59)
[2022-02-21] MEDS: DIGOXIN 125 MCG TABLET PO SCH (09:00)
[2022-02-21] MEDS: SPIRONOLACTONE 25 MG TABLET PO SCH (09:00)
[2022-02-21] MEDS: ASCORBIC ACID 500 MG TABLET PO SCH ×2 (09:02→17:10)
[2022-02-21] MEDS: METHIMAZOLE 5 MG TABLET PO SCH (09:05)
[2022-02-21 11:33] VITALS: BP 119/56
[2022-02-21] MEDS ORDERED: NUTR1PAC14 PO (11:58)
[2022-02-21] MEDS ORDERED: DOCU-141 PO (11:58)
[2022-02-21] MEDS ORDERED: PROT30LI PO (11:58)
[2022-02-21] MEDS ORDERED: GUAI5SYR PO (11:58)
[2022-02-21] MEDS ORDERED: PANT40TA49 PO (11:58)
[2022-02-21] MEDS ORDERED: ACID1TAB4 PO (11:58)
[2022-02-21] MEDS ORDERED: AMOX-430 PO (11:58)
[2022-02-21] MEDS ORDERED: TEMA15CA PO (11:58)
[2022-02-21] MEDS ORDERED: METF-494 PO (11:58)
[2022-02-21] MEDS ORDERED: ATOR10TA PO (11:58)
[2022-02-21] MEDS ORDERED: MUPI22OI2 NS (11:58)
[2022-02-21] MEDS ORDERED: BUME2TAB7 PO ×2 (11:58)
[2022-02-21 16:47] VITALS: BP 100/56
--- NOTE | 2022-02-21 17:34 | NUR ---
At 5pm, picked up by [facility] for discharge to [facility]. Report given to Jeanine ZAMORA cryptologic supervisor. Patient awake and cooperative. Belongings verified by patient all intact. Left via gurney in stable condition.
== END 2022-02-21 17:20 | DRG 871 ==
LOC: ER 14:18 → EDBD 20:09 → TELE3 20:09 → MEDSURG3 02-21 12:36
PROVIDERS: ADMIT Internal Medicine; ATTEND Internal Medicine
DX: A41.9 Sepsis, unspecified organism (principal); E43 Unspecified severe protein-calorie malnutrition; J69.0 Pneumonitis due to inhalation of food and vomit; G92.8 Other toxic encephalopathy; D68.59 Other primary thrombophilia; E87.1 Hypo-osmolality and hyponatremia; E87.3 Alkalosis; I42.9 Cardiomyopathy, unspecified; I50.22 Chronic systolic (congestive) heart failure; Z20.822 Contact with and (suspected) exposure to COVID-19; D63.8 Anemia in other chronic diseases classified elsewhere; E05.90 Thyrotoxicosis, unspecified without thyrotoxic crisis or storm; E11.9 Type 2 diabetes mellitus without complications; E66.9 Obesity, unspecified; E78.5 Hyperlipidemia, unspecified; E88.09 Other disorders of plasma-protein metabolism, not elsewhere classified; I11.0 Hypertensive heart disease with heart failure; Z79.01 Long term (current) use of anticoagulants; Z79.84 Long term (current) use of oral hypoglycemic drugs; I48.91 Unspecified atrial fibrillation; Z95.2 Presence of prosthetic heart valve; G62.9 Polyneuropathy, unspecified; I35.0 Nonrheumatic aortic (valve) stenosis; Z74.09 Other reduced mobility; Z22.322 Carrier or suspected carrier of Methicillin resistant Staphylococcus aureus; D50.9 Iron deficiency anemia, unspecified
CPT/HCPCS: 36415; 71045; 83550; 83605; 83735; 84100; 84153; 84443; 84484; 85025; 85730; 87040; 87086; 93005; A4663; A6213; G0378; J0456; J0696; J2543; J7040

== ENCOUNTER 2022-03-13 15:09 | Inpatient (IN) | payer MEDICARE, OTHER ==
[~2022-03-13] VITALS: Ht 165.1 cm; Wt 74.4 kg
[~2022-03-13 15:09] MED LIST changes: +ACET-2154 PO; -ACET-73 PO; +ACID1TAB4 PO; +AMIN30LI2 PO; +AMOX-430 PO; +ARGI1POW13 PO; +ASCO500C18 PO; +ATOR10TA PO; -ATOR40TA PO; +BUME2TAB7 PO; +DIGO125T PO; -DIGO125T5 PO; +DOCU-141 PO; -GABA-532 PO; +GABA300C PO; +GUAI5SYR PO; +HYDR-894 PO; -LOSA25TA27 PO; +MAGN400C PO; -METF-441 PO; +METF-494 PO; +MULT-213 PO; +MUPI22OI2 NS; +NUTR1PAC14 PO; +PANT40TA49 PO; +PROT30LI PO; -RIVA20TA PO; +SPIR25TA6 PO; +TEMA15CA PO; +ZINC50TA69 PO
[2022-03-13] MEDS ORDERED: MORPHINE SULFATE 4 MG/1 ML DISP.SYRIN IV ONE (15:45)
[2022-03-13] MEDS ORDERED: IV NORMAL SALINE 1000 ML BAG IV ONE (15:45)
--- NOTE | 2022-03-13 15:53 | NUR ---
PT IS ROOM #1B. DR ROBERSON EVALUATED THE PT.
[2022-03-13 16:00] LABS: MEAN CORPUSCULAR HEMOGLOBIN 29.5 uug (23.8-33.4); MEAN CORPUSCULAR VOLUME 88.9 fL (73.0-96.2); PLATELET COUNT (AUTO) 493 K/uL (152-348)
[2022-03-13 16:01] LABS: CARBON DIOXIDE 34 mmol/L (21-32); CHLORIDE 95 mmol/L (98-107); GLUCOSE 118 mg/dL (74-106); POTASSIUM 4.8 mmol/L (3.5-5.1); UREA NITROGEN, BLOOD 37 mg/dL (7-18)
[2022-03-13 16:09] LABS: ALANINE AMINOTRANSFERASE 19 U/L (16-63); ALKALINE PHOSPHATASE 208 U/L (50-136); ASPARTATE AMINOTRANSFERASE 35 U/L (15-37); BILIRUBIN,DIRECT 0.3 mg/dL (0.0-0.2); BILIRUBIN,TOTAL 0.8 mg/dL (0.2-1.0); LIPASE 115 U/L (73-393); TOTAL PROTEIN, SERUM 8.4 g/dL (6.4-8.2)
[2022-03-13] MEDS ORDERED: IV NORMAL SALINE 250 ML IV ONE (16:17)
[2022-03-13] MEDS ORDERED: SWABABLE VALVE TRANSFER SET EA MC ONE (16:17)
[2022-03-13] MEDS ORDERED: IOHEXOL 300MG/ML 100 ML INFUS..BTL ONE (16:17)
[2022-03-13 16:22] LABS: *OCCULT BLOOD STOOL NEGATIVE (NEGATIVE)
[2022-03-13] MEDS ORDERED: AMIN30LI2 PO (16:29)
[2022-03-13] MEDS ORDERED: ONDA4TAB5 PO (16:29)
[2022-03-13] MEDS ORDERED: ZINC50TA39 PO (16:29)
[2022-03-13] MEDS ORDERED: GLUC1KIT IM (16:29)
[2022-03-13] MEDS ORDERED: ACET-2154 PO (16:29)
[2022-03-13] MEDS ORDERED: DOCU100C36 PO (16:29)
[2022-03-13 17:47] LABS: *BILIRUBIN,URIN NEGATIVE (NEGATIVE); *CLARITY,URINE CLEAR (CLEAR); *COLOR,URINE YELLOW (YELLOW); *KETONES,URINE NEGATIVE (NEGATIVE); LEUKOCYTE ESTERASE ,URINE NEGATIVE (NEGATIVE); NITRITE, URINE NEGATIVE (NEGATIVE); PH,URINE 5.5 (5.0-8.0); UGLUCOSE NEGATIVE (NEGATIVE)
[2022-03-13 17:49] LABS: *BLOOD, URINE TRACE (NEGATIVE)
[2022-03-13 17:54] LABS: BACTERIA,URINE FEW /HPF (NONE SEEN); SQUAMOUS EPITHELIAL CELL,UR FEW /HPF (NONE SEEN); WBC,URINE 0-3 /HPF (0-3)
[2022-03-13] MEDS ORDERED: IV D5 1/2 NS 1000 ML 1,000 ML IV PRN (18:30)
[2022-03-13] MEDS ORDERED: ACETAMINOPHEN 325 MG TABLET PO PRN (18:30)
[2022-03-13] MEDS ORDERED: ONDANSETRON 4 MG/2 ML VIAL IV PRN (18:30)
[2022-03-13] MEDS ORDERED: HYDROCODONE/APAP 5-325MG TABLET PO PRN (18:30)
[2022-03-13] MEDS ORDERED: PIPERACILLIN SODIUM/TAZOBACTAM 3.375 G in IV DEXTROSE 5% 50 ML IV ONE (18:30)
[2022-03-13] MEDS ORDERED: REMEDY ESSENTIAL ZINC PASTE 113 GM TP PRN (18:30)
[2022-03-13] MEDS ORDERED: MAGNESIUM HYDROXIDE 30 ML LIQUID UDC PO PRN (18:30)
[2022-03-13] MEDS ORDERED: PIPERACILLIN/TAZOBACTAM/D5W 50 ML IV ONE (18:39)
[2022-03-13] MEDS ORDERED: HYDROMORPHONE 1 MG/1 ML DISP.SYRIN ONE (19:52)
--- NOTE | 2022-03-13 20:15 | NUR ---
Patient called nurse requesting urinal. Total output was 300mL of orange urine. Hua
[2022-03-13] MEDS ORDERED: HYDROMORPHONE 1 MG/1 ML DISP.SYRIN IV ONE (20:30)
--- NOTE | 2022-03-13 20:42 | NUR ---
INSERTED LEFT NARE NGT CONNECTED TO LWIS .OBTAINED 100 ML OF YELLOWISH RESIDUAL ,PATIENT TOLERATED THE PROCEDURE .
--- NOTE | 2022-03-13 21:08 | NUR ---
X ray was done to verify placement of NG tube Megan/Daria
--- NOTE | 2022-03-13 21:34 | NUR ---
Called sister (Kenia Del Toro) regarding ross's admission. Informed room number, planning to visit in the morning. Hua
--- NOTE | 2022-03-13 21:36 | NUR ---
Patient is going to room 317 to nurse July. Moved using jairo w/ all belonging, SBAR given. Megan/Daria
--- NOTE | 2022-03-13 22:00 | NUR ---
Admitted from ER to room 317 via rney. Alert and oriented x 2, speaks Yemeni. In no acute distress, denies chest pain. NGT intact and patent connected to suction on intermittent low pressure. A. Fib on tele. Routine admission care rendered. Oriented to room, BR, TV and call light. Needs assessed and attended to.
[2022-03-13] MEDS ORDERED: PIPERACILLIN/TAZOBACTAM/D5W 100 ML IV ONE (22:33)
[2022-03-13 22:35] VITALS: BP 143/68
[2022-03-14] MEDS ORDERED: PIPERACILLIN SODIUM/TAZOBACTAM 3.375 G in IV DEXTROSE 5% 50 ML IV SCH ×2
[2022-03-14 00:35] VITALS: BP 115/59
[2022-03-14 04:15] VITALS: BP 110/64
[2022-03-14] MEDS: MORPHINE SULFATE 2 MG/1 ML DISP.SYRIN IV PRN ×3 (04:19→18:05)
[2022-03-14] MEDS: PIPERACILLIN SODIUM/TAZOBACTAM 3.375 G in IV DEXTROSE 5% 50 ML IV SCH ×3 (06:07)
[2022-03-14 07:07] LABS: HEMATOCRIT 30.3 % (36.7-47.1); MEAN CORPUSCULAR HEMOGLOBIN 30.2 uug (23.8-33.4); MEAN CORPUSCULAR VOLUME 88.2 fL (73.0-96.2); PLATELET COUNT (AUTO) 446 K/uL (152-348)
[2022-03-14 07:21] LABS: MAGNESIUM 2.5 mg/dL (1.8-2.4); PHOSPHOROUS 4.6 mg/dL (2.5-4.9); POTASSIUM 4.5 mmol/L (3.5-5.1)
[2022-03-14] MEDS ORDERED: DIATR MEGLU/DIATRIZOATE SODIUM 30 ML BOTTLE ONE (07:41)
[2022-03-14] MEDS: PANTOPRAZOLE SODIUM 40 MG VIAL IV SCH (08:27)
--- NOTE | 2022-03-14 10:15 | NUR ---
DR LIAO HERE SEEN PATIENT WITH ORDER TO DISCONTINUE IVF AND NOTED AWARE THAT PATIENT IS NPO.
[2022-03-14] MEDS: DIGOXIN 500 MCG/2 ML AMP IV SCH (11:17)
[2022-03-14 11:31] VITALS: BP 108/69
--- NOTE | 2022-03-14 13:00 | NUR ---
DR INTERIANO VISITED WITH NO NEW ORDERS AT THIS TIME
[2022-03-14] MEDS: PIPERACILLIN SODIUM/TAZOBACTAM 3.375 G in IV DEXTROSE 5% 100 ML IV SCH ×2 (15:00→21:00)
[2022-03-14 16:00] VITALS: BP 117/64
--- NOTE | 2022-03-14 18:00 | NUR ---
NGT REMAINS INTACT AND BROWNNISH BILE DRAINAGE OD ABOUT 100 ML PATIENT REMAINS NPO AT THIS TIME NO SOB NOT IN DISTRESS.
[2022-03-14 20:00] VITALS: BP 118/61
[2022-03-15 04:37] VITALS: BP 126/75
[2022-03-15] MEDS: PIPERACILLIN SODIUM/TAZOBACTAM 3.375 G in IV DEXTROSE 5% 100 ML IV SCH ×3 (06:02→22:53)
[2022-03-15 06:25] LABS: HEMATOCRIT 28.9 % (36.7-47.1); MEAN CORPUSCULAR HEMOGLOBIN 30.2 uug (23.8-33.4); MEAN CORPUSCULAR VOLUME 89.2 fL (73.0-96.2); PLATELET COUNT (AUTO) 395 K/uL (152-348)
[2022-03-15 06:41] LABS: MAGNESIUM 2.6 mg/dL (1.8-2.4); PHOSPHOROUS 4.1 mg/dL (2.5-4.9)
[2022-03-15] MEDS: PANTOPRAZOLE SODIUM 40 MG VIAL IV SCH (08:10)
[2022-03-15] MEDS: DIGOXIN 500 MCG/2 ML AMP IV SCH (08:46)
[2022-03-15] MEDS: MORPHINE SULFATE 2 MG/1 ML DISP.SYRIN IV PRN (09:41)
--- NOTE | 2022-03-15 09:41 | NUR ---
IN BED AWAKE ALERT STATED HAS PAIN HE WAS GETTING RESTLESS MEDICATED WITH MORPHINE ORDERED NGT IS INTACT TO LOW GOMCO SUCTIONING WITH SCANTY AMOUNT OF BROWNISH SECRETION ORAL CARE TOLERATED WELL REMAIN ON ATB ORDERED WITH NO ADVERSE OR ALLERGIC REACTIONS AT THIS TIME LOWER ABD WITH STERI STRIPS TO HIS SURGICAL INCISION WITH NO DRAINAGE AT THIS TIME.MADE COMFORTABLE WILL CONTINUE TO OBSERVE.
--- NOTE | 2022-03-15 09:46 | NUR ---
DR LIAO HERE TO SEE PATIENT AND STATED TO DO STAT EKG STATED THAT PATIENT COMPLAINED OF CHEST PRESSURE AND NOTED.VITALS CHECKED AND WNL AT THIS TIME.
[2022-03-15 09:48] VITALS: BP 119/70
[2022-03-15 12:35] VITALS: BP 115/57
--- NOTE | 2022-03-15 12:39 | NUR ---
RESULT OF EKG ORDERED BY DR LIAO RECEIVED AND SENT TO HIM WITH ORDER TO CHECK TROPONIN AND NOTED.
--- NOTE | 2022-03-15 13:50 | NUR ---
TROPONIN RESULT RELAYED TO DR LIAO WITH NO NEW ORDERS AT THIS TIME
[2022-03-15 16:33] VITALS: BP 129/55
--- NOTE | 2022-03-15 18:53 | NUR ---
DR EDIS SHORT HERE TO SEE PATIENT WITH NEW ORDERS AND NOTED.
--- NOTE | 2022-03-15 19:05 | NUR ---
Received patient in bed alert oriented, no sob no chest pain, sinus on tele, no complain of pain, just discomfort from NGT, not connected to suction machine per order, no nausea no vomiting noted at this time. cont to monitor.
[2022-03-15 20:45] VITALS: BP 129/53
--- NOTE | 2022-03-15 23:30 | NUR ---
Patient alert oriented, no sob no chest pain, no further complain of abd pain, tele sinus rhythm at this time, patient NGT been off from intermittent suction, with minimal residual of 10cc brownish whitish color fluid, cont off from intermittent suction.
[2022-03-16 00:13] VITALS: BP 120/58
--- NOTE | 2022-03-16 01:30 | NUR ---
Patient has episode of few beats of Vent tach, patient asymptomatic, alert oriented, patient coughing tries to expectorate sputum from throat, cont to monitor.
[2022-03-16 04:12] VITALS: BP 120/55
[2022-03-16] MEDS: PIPERACILLIN SODIUM/TAZOBACTAM 3.375 G in IV DEXTROSE 5% 100 ML IV SCH ×3 (05:50→21:51)
--- NOTE | 2022-03-16 06:25 | NUR ---
Patient asleep but arousable, no sob no chest pain, sinus on tele, no further complain of pain, recheck NGT residual with minimal residual of 10cc brownish yellow color fluids, cont to monitor.
[2022-03-16 07:25] LABS: HEMATOCRIT 30.6 % (36.7-47.1); MEAN CORPUSCULAR HEMOGLOBIN 30.3 uug (23.8-33.4); MEAN CORPUSCULAR VOLUME 89.2 fL (73.0-96.2); PLATELET COUNT (AUTO) 365 K/uL (152-348)
[2022-03-16 07:42] LABS: MAGNESIUM 2.7 mg/dL (1.8-2.4); PHOSPHOROUS 3.7 mg/dL (2.5-4.9); POTASSIUM 3.8 mmol/L (3.5-5.1)
--- NOTE | 2022-03-16 08:00 | NUR ---
RECEIVED IN BED AWAKE ALERT AND AWARE NO S/S OF PAIN OR DISCOMFORTS AT THIS TIME STILL HAS NGT BUT NOT CONNECTED ABD IS SOFT NON DISTENDED ON O2 WITH NO SOB REPOSITIONED FOR COMFORT REMAIN ON IV ATB WITH NO ADVERSE OR ALLERGIC REACTIONS AT THIS TIME MADE COMFORTABLE WILL CONTINUE TO OBSERVE.
[2022-03-16] MEDS: PANTOPRAZOLE SODIUM 40 MG VIAL IV SCH (08:54)
[2022-03-16 11:32] VITALS: BP 135/80
[2022-03-16] MEDS: MORPHINE SULFATE 2 MG/1 ML DISP.SYRIN IV PRN (12:18)
--- NOTE | 2022-03-16 12:18 | NUR ---
C/O ABDOMINAL PAIN MEDICATED WITH MORPHINE ORDERED NGT IS IN PLACE BUT NOT CONNECTED TO SUCTION AT THIS TIME.ORAL CARE TOLERATED WELL MADE COMFORTABLE WILL CONTINUE TO OBSERVE.
[2022-03-16 16:00] VITALS: BP 130/61
--- NOTE | 2022-03-16 17:10 | NUR ---
PATIENT SEEN BY DAILY ARROYO EMPLOYEE DEVELOPMENT SPECIALIST WITH NEW ORDERS AND NOTED.NGT DCD ORDERED WILL START ON CLEAR LIQUIDS DIET AND WILL CHECK TOLERANCE.
[2022-03-16 20:00] VITALS: BP 127/54
--- NOTE | 2022-03-16 21:00 | NUR ---
PATIENT TOLERATED HIS CLEAR LIQUIDS MEAL ORDERED WITH NO VOMITING OR ABDOMINAL PAIN AT THIS TIME WILL CONTINUE TO OBSERVE
[2022-03-17] VITALS: BP 145/58
[2022-03-17 04:00] VITALS: BP 126/61
[2022-03-17] MEDS: PIPERACILLIN SODIUM/TAZOBACTAM 3.375 G in IV DEXTROSE 5% 100 ML IV SCH (05:13)
--- NOTE | 2022-03-17 06:00 | NUR ---
SLEPT AT LONG INTERVALS EASILY AROUSABLE ON ROUNDS REMAIN ON ATB ORDERED WITH NO ADVERSE OR ALLERGIC REACTIONS AT THIS TIME DENIES ABDOMINAL PAIN MADE COMFORTABLE WILL CONTINUE TO OBSERVE.
[2022-03-17 06:49] LABS: HEMATOCRIT 31.3 % (36.7-47.1); MEAN CORPUSCULAR HEMOGLOBIN 29.8 uug (23.8-33.4); MEAN CORPUSCULAR VOLUME 88.1 fL (73.0-96.2); PLATELET COUNT (AUTO) 381 K/uL (152-348)
[2022-03-17 07:00] LABS: CREATININE 0.9 mg/dL (0.6-1.3); MAGNESIUM 2.3 mg/dL (1.8-2.4); PHOSPHOROUS 3.1 mg/dL (2.5-4.9); POTASSIUM 3.6 mmol/L (3.5-5.1)
[2022-03-17] MEDS: PANTOPRAZOLE SODIUM 40 MG VIAL IV SCH (09:05)
[2022-03-17] MEDS ORDERED: METHIMAZOLE 5 MG TABLET PO SCH (09:30)
[2022-03-17] MEDS ORDERED: METOPROLOL SUCCINATE XL 25 MG TAB.SR.24H PO SCH (09:30)
[2022-03-17] MEDS ORDERED: DIGOXIN 125 MCG TABLET PO SCH (09:30)
[2022-03-17 11:45] VITALS: BP 138/66
[2022-03-17] MEDS ORDERED: METO-356 PO (12:56)
[2022-03-17] MEDS ORDERED: RIVA10TA PO (12:56)
[2022-03-17] MEDS ORDERED: LOSA25TA27 PO (12:56)
[2022-03-17] MEDS ORDERED: METH5TAB34 PO (12:56)
[2022-03-17 16:26] VITALS: BP 118/63
--- NOTE | 2022-03-17 17:07 | NUR ---
Patient discharged from unit. IV site removed. ID band removed. Discharge education provided.
[2022-03-17] MEDS ORDERED: RIVAROXABAN 10 MG TABLET PO SCH (18:00)
[2022-03-18] MEDS ORDERED: LOSARTAN POTASSIUM 25 MG TABLET PO SCH (09:00)
== END 2022-03-17 17:30 | DRG 388 ==
LOC: ER 15:09 → MEDSURG3 21:15 → TELE3 22:00
PROVIDERS: ADMIT Student in an Organized Health Care Education/Training Program; ATTEND Nurse Practitioner Acute Care
DX: K56.600 Partial intestinal obstruction, unspecified as to cause (principal); I50.23 Acute on chronic systolic (congestive) heart failure; E87.1 Hypo-osmolality and hyponatremia; I48.20 Chronic atrial fibrillation, unspecified; J90 Pleural effusion, not elsewhere classified; J98.11 Atelectasis; I42.9 Cardiomyopathy, unspecified; R18.8 Other ascites; D75.839 Thrombocytosis, unspecified; D50.9 Iron deficiency anemia, unspecified; E78.5 Hyperlipidemia, unspecified; E86.0 Dehydration; G62.9 Polyneuropathy, unspecified; K74.60 Unspecified cirrhosis of liver; Z95.1 Presence of aortocoronary bypass graft; Z95.2 Presence of prosthetic heart valve; I25.10 Atherosclerotic heart disease of native coronary artery without angina pectoris; I35.0 Nonrheumatic aortic (valve) stenosis; Z79.01 Long term (current) use of anticoagulants; K80.20 Calculus of gallbladder without cholecystitis without obstruction; Z79.84 Long term (current) use of oral hypoglycemic drugs; E05.90 Thyrotoxicosis, unspecified without thyrotoxic crisis or storm
CPT/HCPCS: 36415; 71045; 74250; 83690; 83735; 84100; 84484; 85025; 93005; A4663; C9113; G0378; J1160; J1170; J2270; J2543; J7040; Q9963; Q9967